=== PATIENT | male | born 1990 | race Caucasian/White ===

== ENCOUNTER 2016-09-28 11:26 | Emergency (ER) | payer OTHER, BC ==
[~2016-09-28] VITALS: Ht 190.5 cm; Wt 67.8 kg
[~2016-09-28 11:26] MED LIST: ETOP20VI IV; GEMC200V IV; HYDR-3144 PO; LORA1TAB PO; ONDA4TAB7 PO
[2016-09-28] MEDS ORDERED: ACYC-114 PO (11:55)
[2016-09-28] MEDS ORDERED: ESCI10TA10 PO (11:55)
[2016-09-28] MEDS ORDERED: COCAINE TOPICAL SOLN 4%, 4ML ONE (12:15)
[2016-09-28] MEDS ORDERED: OXYMETAZOLINE NASAL SPRAY 0.05%, 15ML ONE (12:16)
[2016-09-28] MEDS ORDERED: OXYMETAZOLINE NASAL SPRAY 0.05%, 15ML NAS ONE (12:30)
[2016-09-28] MEDS ORDERED: COCAINE TOPICAL SOLN 4%, 4ML TP ONE (12:30)
[2016-09-28 12:58] LABS: DIFF TOTAL CELLS COUNTED 100 CELL DIFF
[2016-09-28 13:00] LABS: VERIFY COUNTS? YES
[2016-09-28 13:01] LABS: ANISOCYTOSIS 1+
[2016-09-28] MEDS ORDERED: LIDOCAINE GEL 2%, 5ML ONE (14:23)
[2016-09-28] MEDS ORDERED: LIDOCAINE GEL 2%, 5ML TP ONE (14:30)
[2016-09-28 15:16] VITALS: BP 101/54
[2016-09-28 15:32] VITALS: BP 105/45
[2016-09-28 15:50] VITALS: BP 103/54
[2016-09-28 15:52] VITALS: BP 103/54
[2016-09-28 16:08] VITALS: BP 107/59
== END 2016-09-28 16:47 | disposition home or self-care (01) ==
LOC: ED 12:13
DX: R04.0 Epistaxis (principal); D68.32 Hemorrhagic disorder due to extrinsic circulating anticoagulants; D69.59 Other secondary thrombocytopenia
CPT/HCPCS: 30905; 36415; 36430; 85025; 99285; P9037

== ENCOUNTER 2016-09-28 18:16 | Emergency (ER) | payer OTHER, BC ==
[~2016-09-28] VITALS: Ht 190.5 cm; Wt 67.6 kg
[~2016-09-28 18:16] MED LIST changes: +ACYC-114 PO; +ESCI10TA10 PO
[2016-09-28 18:21] VITALS: BP 110/65
== END 2016-09-28 19:01 | disposition home or self-care (01) ==
LOC: ED 18:55
DX: Z02.9 Encounter for administrative examinations, unspecified (principal)
CPT/HCPCS: 99281

== ENCOUNTER → 2017-01-13 | Outpatient (CLI) | payer BC, OTHER ==
[~2017-01-13] MED LIST changes: -HYDR-3144 PO; +HYDR-3245 PO; +OMNIPAQUE 350 MG/ML, 100ML BOTTLE ONE
[2017-01-13 15:48] LABS: HEMATOCRIT 31.2 % (39.2-51.8); HEMOGLOBIN 10.3 g/dL (13.7-18.0)
[2017-01-13 15:49] LABS: ASPARTATE AMINO TRANSFERASE 33 U/L (15-37); BLOOD UREA NITROGEN 20 mg/dL (7-18); LACTATE DEHYDROGENASE 259 U/L (87-241)
[2017-01-13 15:53] LABS: ANISOCYTOSIS 1+
[2017-01-13 15:54] LABS: LARGE PLATELETS 1+
== END | disposition home or self-care (01) ==
LOC: RAD 13:14
PROVIDERS: ATTEND Internal Medicine Hematology & Oncology
DX: C78.02 Secondary malignant neoplasm of left lung (principal); C78.01 Secondary malignant neoplasm of right lung; C62.12 Malignant neoplasm of descended left testis; R59.0 Localized enlarged lymph nodes; R16.1 Splenomegaly, not elsewhere classified; R16.0 Hepatomegaly, not elsewhere classified
CPT/HCPCS: 36415; 71260; 74177; 80053; 82105; 83615; 84702; 85025; Q9967

== ENCOUNTER → 2017-02-04 | Outpatient (CLI) | payer BC, OTHER ==
[~2017-02-04] MED LIST changes: -OMNIPAQUE 350 MG/ML, 100ML BOTTLE ONE
== END | disposition home or self-care (01) ==
LOC: LAB 16:47
PROVIDERS: ATTEND Internal Medicine Hematology & Oncology
DX: Z51.11 Encounter for antineoplastic chemotherapy (principal); C62.12 Malignant neoplasm of descended left testis; C78.00 Secondary malignant neoplasm of unspecified lung; F43.22 Adjustment disorder with anxiety; R19.7 Diarrhea, unspecified; D69.6 Thrombocytopenia, unspecified; D70.1 Agranulocytosis secondary to cancer chemotherapy
CPT/HCPCS: 36415; 84702

== ENCOUNTER 2017-03-01 13:34 | Emergency (ER) | payer BC, OTHER ==
[2017-03-01] VITALS (7 sets, daily range): BP systolic 97–124; BP diastolic 48–73
[~2017-03-01] VITALS: Ht 190.5 cm; Wt 73.2 kg
[2017-03-01] MEDS ORDERED: SODIUM CHLORIDE FLUSH 10ML SYR IVF ONE (15:00)
[2017-03-01 15:05] LABS: BLOOD UREA NITROGEN 18 mg/dL (7-18)
[2017-03-01 15:10] LABS: HEMATOCRIT 30.5 % (39.2-51.8); HEMOGLOBIN 10.3 g/dL (13.7-18.0); WHITE BLOOD COUNT 5.5 x10^3/uL (3.4-10)
[2017-03-01 15:17] LABS: ASPARTATE AMINO TRANSFERASE 30 U/L (15-37)
[2017-03-01 15:37] LABS: DIFF TOTAL CELLS COUNTED 100 CELL DIFF
[2017-03-01 15:40] LABS: ANISOCYTOSIS 1+
[2017-03-01 15:41] LABS: POLYCHROMASIA 1+
[2017-03-01 15:42] LABS: VERIFY COUNTS? YES
== END 2017-03-01 20:13 | disposition home or self-care (01) ==
LOC: ED 16:22
DX: C62.90 Malignant neoplasm of unspecified testis, unspecified whether descended or undescended (principal); R04.2 Hemoptysis; D69.6 Thrombocytopenia, unspecified
CPT/HCPCS: 36415; 36430; 71020; 80053; 85025; 85610; 85730; 86850; 86900; 99285; P9035

== ENCOUNTER 2017-06-07 11:07 | Emergency (ER) | payer OTHER, BC ==
[2017-06-07] VITALS (9 sets, daily range): BP systolic 56–110; BP diastolic 39–60
[~2017-06-07] VITALS: Ht 190.5 cm; Wt 68.7 kg
[2017-06-07] MEDS ORDERED: SODIUM CHLORIDE 0.9% 1,000ML IVBOLUS ONE (12:00)
[2017-06-07] MEDS ORDERED: ONDANSETRON 2MG/ML, 2ML IVPush ONE (12:00)
[2017-06-07] MEDS ORDERED: ONDANSETRON 2MG/ML, 2ML ONE (12:19)
[2017-06-07 12:36] LABS: INTERNATIONAL NORMALIZED RATIO 1.07 (0.93-1.1); PROTHROMBIN TIME 11.1 Seconds (9.6-11.5)
[2017-06-07 12:40] LABS: ALANINE AMINOTRANSFERASE 176 U/L (12-78); ALBUMIN 2.8 g/dL (3.4-5.0); ANION GAP 6 mmol/L (5-15); CALCIUM 8.4 mg/dL (8.5-10.1); CHLORIDE 94 mmol/L (98-107); CREATININE 0.91 mg/dL (0.7-1.3)
[2017-06-07 12:44] LABS: ALKALINE PHOSPHATASE 871 U/L (45-117); BILIRUBIN,TOTAL 2.3 mg/dL (0.2-1.0); TOTAL PROTEIN 6.9 g/dL (6.4-8.2)
[2017-06-07 12:50] LABS: RAPID INFLUENZA A Negative (Negative); RAPID INFLUENZA B Negative (Negative)
[2017-06-07 12:52] LABS: MEAN CORPUSCULAR HEMOGLOBIN 31.4 pg (27.5-34.5); MEAN CORPUSCULAR HGB CONC 33.2 g/dL (33.2-36.2); MEAN CORPUSCULAR VOLUME 94.4 fL (81-97); MEAN PLATELET VOLUME 7.6 fL (7.4-10.4); PLATELET COUNT 177 x10^3/uL (130-400); RED BLOOD COUNT 1.96 x10^6/uL (4.38-5.82); RED CELL DISTRIBUTION WIDTH 17.1 % (9.4-14.8)
[2017-06-07 13:09] LABS: BASOPHILS % (AUTO) 0 % (0-1); EOSINOPHILS % (AUTO) 0 % (1-7); LYMPHOCYTES % (AUTO) 4 % (22-44); MD SCAN; MONOCYTES # (AUTO) 0.52 x10^3/uL (0.2-0.8); MONOCYTES % (AUTO) 5 % (2-9); NEUTROPHILS # (AUTO) 9.81 x10^3/uL (1.8-6.8); NEUTROPHILS % (AUTO) 91 % (42-75)
[2017-06-07] MEDS ORDERED: MORPHINE SULFATE 4 MG/ML, 1ML ONE ×2 (14:05→14:54)
[2017-06-07] MEDS ORDERED: morphine SULFATE 10 MG/ML, 1ML IVPush ONE (14:30)
[2017-06-07] MEDS ORDERED: HYDROmorphone 2 MG/ML, 1ML IVPush PRN (15:00)
[2017-06-07] MEDS ORDERED: HYDROmorphone 2 MG/ML, 1ML ONE (15:11)
[2017-06-07] MEDS ORDERED: OMNIPAQUE 350 MG/ML, 100ML BOTTLE ONE (17:09)
[2017-06-07 18:13] LABS: MICROSCOPIC INDICATED
[2017-06-07 18:25] LABS: CULTURE INDICATED? NO
== END 2017-06-07 18:26 | disposition home or self-care (01) ==
LOC: ED 13:42
DX: C62.90 Malignant neoplasm of unspecified testis, unspecified whether descended or undescended (principal); R16.0 Hepatomegaly, not elsewhere classified
CPT/HCPCS: 36415; 71275; 74022; 74177; 80053; 81001; 83605; 83880; 85025; 85610; 85730; 86850; 86900; 86923; 87040; 87400; 93005; 96361; 96374; 96375; 99285; J1170; J2270; J2405; J7030; P9016; Q9967

== ENCOUNTER 2017-06-09 15:12 | Inpatient (IN) | payer OTHER, BC ==
[2017-06-09] VITALS (8 sets, daily range): BP systolic 80–107; BP diastolic 32–64
[~2017-06-09] VITALS: Ht 190.5 cm; Wt 81.3 kg
[~2017-06-09 15:12] MED LIST changes: +ATROPINE SYRINGE 0.1 MG/ML, 10ML ONE; +DEXTROSE 50%, 50ML SYRINGE ONE; +EPINEPHRINE SYRINGE 0.1 MG/ML, 10ML ONE
[2017-06-09] MEDS ORDERED: SODIUM CHLORIDE 0.9% 1,000ML IVBOLUS ONE ×2 (15:30→16:00)
[2017-06-09] MEDS ORDERED: NOREPINEPHRINE 4 MG in SODIUM CHLORIDE 0.9% 246 ML IV PRN ×2 (15:30→17:00)
[2017-06-09 15:44] LABS: MEAN CORPUSCULAR HEMOGLOBIN 30.9 pg (27.5-34.5); MEAN CORPUSCULAR HGB CONC 33.1 g/dL (33.2-36.2); MEAN CORPUSCULAR VOLUME 93.2 fL (81-97); MEAN PLATELET VOLUME 7.8 fL (7.4-10.4); PLATELET COUNT 103 x10^3/uL (130-400); RED BLOOD COUNT 1.03 x10^6/uL (4.38-5.82); RED CELL DISTRIBUTION WIDTH 18.7 % (9.4-14.8)
[2017-06-09 15:48] LABS: ALBUMIN 2.2 g/dL (3.4-5.0); CHLORIDE 91 mmol/L (98-107); INTERNATIONAL NORMALIZED RATIO 1.53 (0.93-1.1); PROTHROMBIN TIME 15.8 Seconds (9.6-11.5)
[2017-06-09 15:49] LABS: MD YES
[2017-06-09 15:52] LABS: ALKALINE PHOSPHATASE 616 U/L (45-117); BILIRUBIN,TOTAL 2.8 mg/dL (0.2-1.0); TOTAL PROTEIN 5.3 g/dL (6.4-8.2); TROPONIN I 0.028 ng/mL (0.000-0.045)
[2017-06-09] MEDS ORDERED: PROPOFOL 100 ML IV ONE (15:55)
[2017-06-09 15:59] LABS: ANION GAP 24 mmol/L (5-15); CALCIUM 7.6 mg/dL (8.5-10.1); CREATININE 2.09 mg/dL (0.7-1.3)
[2017-06-09] MEDS ORDERED: PLEASE ENTER HEIGHT AND WEIGHT MC SCH (16:00)
[2017-06-09 16:13] LABS: ALANINE AMINOTRANSFERASE 1340 U/L (12-78)
[2017-06-09] MEDS ORDERED: CALCIUM GLUCONATE 4.6 MEQ in SODIUM CHLORIDE 0.9% 50 ML IV STA (16:28)
[2017-06-09] MEDS ORDERED: SODIUM BICARBONATE 1 MEQ/ML, 50ML VIAL IVPush STA (16:28)
[2017-06-09] MEDS ORDERED: PROPOFOL 100 ML IV PRN (16:30)
[2017-06-09 16:42] LABS: BAND#(MANUAL) 0.85 x10^3/uL; BANDS%(MANUAL) 7 % (0-7); LYMPH#(MANUAL) 0.97 x10^3/uL (1-3.4); LYMPHS% (MANUAL) 8 % (22-44); MONOS#(MANUAL) 0.61 x10^3/uL (0.3-2.7); MONOS% (MANUAL) 5 % (2-9); NRBC % (MANUAL) 1 % (0-1); SEG#(MANUAL) 9.68 x10^3/uL (1.8-6.8); SEGS% (MANUAL) 80 % (42-75)
[2017-06-09 16:46] LABS: POLYCHROMASIA 1+
[2017-06-09 16:49] LABS: <PLATELET ESTIMATE> DECREASED; <PLT MORPHOLOGY> NORMAL PLT MORPH
[2017-06-09] MEDS ORDERED: BISACODYL 10 MG SUPP PR PRN (17:00)
[2017-06-09] MEDS ORDERED: CALCIUM CHLORIDE 13.6 MEQ in SODIUM CHLORIDE 0.9% 100 ML IV ONE (17:00)
[2017-06-09] MEDS ORDERED: SENNOSIDES 8.8 MG/5 ML ORAL SOL NG PRN (17:00)
[2017-06-09] MEDS ORDERED: SENNA/DOCUSATE TABLET NG PRN (17:00)
[2017-06-09] MEDS ORDERED: LIDOCAINE-MPF 1%, 2ML ENDO PRN (17:00)
[2017-06-09] MEDS ORDERED: SODIUM BICARB 8.4%, 50ML SYRINGE IVPush ONE (17:00)
[2017-06-09] MEDS ORDERED: PHARMACY MAY ADJ FOR RENAL FX MC SCH (17:00)
[2017-06-09] MEDS ORDERED: VASOPRESSIN 100 UNIT in SODIUM CHLORIDE 0.9% 495 ML IV PRN (17:00)
[2017-06-09] MEDS ORDERED: LACTULOSE 20 GM/30 ML UDC NG PRN (17:00)
[2017-06-09] MEDS ORDERED: PIPERACILLIN/TAZO/PMX 3.375GM 50 ML ONE (17:30)
[2017-06-09] MEDS: PIPERACILLIN/TAZO/PMX 3.375GM 50 ML IV SCH ×2 (17:54→23:06)
[2017-06-09] MEDS: SODIUM BICARBONATE 8.4% 150 MEQ in DEXTROSE 5% 1,000 ML IV SCH (17:56)
[2017-06-09] MEDS ORDERED: DEXTROSE 50%, 50ML VIAL IVPush ONE (18:00)
[2017-06-09] MEDS: SODIUM CHLORIDE 0.9% 1,000 ML IV SCH (18:32)
[2017-06-09] MEDS ORDERED: GLUCAGON 1 MG IM PRN (19:00)
[2017-06-09] MEDS ORDERED: DEXTROSE 4 GM TAB.CHEW PO PRN (19:00)
[2017-06-09] MEDS ORDERED: DEXTROSE 50%, 50ML SYRINGE IVPush PRN (19:00)
[2017-06-09 19:05] LABS: MEAN CORPUSCULAR HGB CONC 34.2 g/dL (33.2-36.2); MEAN CORPUSCULAR VOLUME 90.8 fL (81-97); RED BLOOD COUNT 1.85 x10^6/uL (4.38-5.82); RED CELL DISTRIBUTION WIDTH 16.4 % (9.4-14.8)
[2017-06-09 19:09] LABS: ALBUMIN 1.7 g/dL (3.4-5.0); ANION GAP 19 mmol/L (5-15); CALCIUM 6.9 mg/dL (8.5-10.1); CHLORIDE 96 mmol/L (98-107)
[2017-06-09 19:13] LABS: ALKALINE PHOSPHATASE 472 U/L (45-117); BILIRUBIN,TOTAL 2.5 mg/dL (0.2-1.0); CREATININE 1.77 mg/dL (0.7-1.3); TOTAL PROTEIN 4.2 g/dL (6.4-8.2); TROPONIN I 0.052 ng/mL (0.000-0.045)
[2017-06-09 19:21] LABS: PLATELET COUNT 40 x10^3/uL (130-400)
[2017-06-09 19:22] LABS: MD YES; MEAN PLATELET VOLUME 6.9 fL (7.4-10.4)
[2017-06-09 19:24] LABS: ALANINE AMINOTRANSFERASE 2301 U/L (12-78)
[2017-06-09 19:53] LABS: BAND#(MANUAL) 0.46 x10^3/uL; BANDS%(MANUAL) 5 % (0-7); LYMPH#(MANUAL) 0.27 x10^3/uL (1-3.4); LYMPHS% (MANUAL) 3 % (22-44); METAMYELOCYTES# (MANUAL) 0.09 x10^3/uL (0-0); METAMYELOCYTES% (MANUAL) 1 % (0-1); MONOS#(MANUAL) 0.09 x10^3/uL (0.3-2.7); MONOS% (MANUAL) 1 % (2-9); MYELOCYTES# (MANUAL) 0.09 x10^3/uL (0-0); MYELOCYTES% (MANUAL) 1 % (0-0); NRBC % (MANUAL) 4 % (0-1); REACTIVE LYMPHS # (MANUAL) 0.09 x10^3/uL (0-0); REACTIVE LYMPHS % (MANUAL) 1 % (0-0); SEG#(MANUAL) 8.01 x10^3/uL (1.8-6.8); SEGS% (MANUAL) 88 % (42-75)
[2017-06-09 19:56] LABS: <PLATELET ESTIMATE> DECREASED; <PLT MORPHOLOGY> NORMAL PLT MORPH; ANISOCYTOSIS 1+; POLYCHROMASIA 1+
[2017-06-09] MEDS: SODIUM CHLORIDE FLUSH 10ML SYR IVF SCH (21:17)
[2017-06-09] MEDS: PANTOPRAZOLE 40 MG IV IVPush SCH (21:17)
[2017-06-09] MEDS ORDERED: PHYTONADIONE 10 MG in SODIUM CHLORIDE 0.9% 50 ML IV ONE (21:30)
[2017-06-10] VITALS (9 sets, daily range): BP systolic 90–99; BP diastolic 53–59
[2017-06-10] MEDS: PROPOFOL 100 ML IV PRN ×4 (00:04→19:44)
[2017-06-10] MEDS: SODIUM CHLORIDE 0.9% 1,000 ML IV SCH ×2 (02:55→10:30)
[2017-06-10] MEDS: SODIUM BICARBONATE 8.4% 150 MEQ in DEXTROSE 5% 1,000 ML IV SCH ×3 (02:56→21:29)
[2017-06-10 04:37] LABS: INTERNATIONAL NORMALIZED RATIO 1.46 (0.93-1.1); PROTHROMBIN TIME 15.1 Seconds (9.6-11.5)
[2017-06-10 04:42] LABS: ALBUMIN 2.1 g/dL (3.4-5.0); ANION GAP 13 mmol/L (5-15); CALCIUM 6.4 mg/dL (8.5-10.1); CHLORIDE 97 mmol/L (98-107)
[2017-06-10 04:43] LABS: MEAN CORPUSCULAR HEMOGLOBIN 31.3 pg (27.5-34.5); MEAN CORPUSCULAR HGB CONC 34.6 g/dL (33.2-36.2); MEAN CORPUSCULAR VOLUME 90.4 fL (81-97); RED BLOOD COUNT 2.91 x10^6/uL (4.38-5.82); RED CELL DISTRIBUTION WIDTH 14.7 % (9.4-14.8)
[2017-06-10 05:02] LABS: ALANINE AMINOTRANSFERASE 3225 U/L (12-78); ALKALINE PHOSPHATASE 503 U/L (45-117); BILIRUBIN,TOTAL 4.3 mg/dL (0.2-1.0); CREATININE 1.91 mg/dL (0.7-1.3); TOTAL PROTEIN 4.8 g/dL (6.4-8.2)
[2017-06-10 05:41] LABS: BASOPHILS # (AUTO) 0.02 x10^3/uL (0-0.1); BASOPHILS % (AUTO) 0 % (0-1); EOSINOPHILS % (AUTO) 0 % (1-7); LYMPHOCYTES # (AUTO) 0.76 x10^3/uL (1-3.4); LYMPHOCYTES % (AUTO) 6 % (22-44); MD SCAN; MEAN PLATELET VOLUME 7.5 fL (7.4-10.4); MONOCYTES # (AUTO) 0.15 x10^3/uL (0.2-0.8); MONOCYTES % (AUTO) 1 % (2-9); NEUTROPHILS # (AUTO) 11.61 x10^3/uL (1.8-6.8); NEUTROPHILS % (AUTO) 93 % (42-75); PLATELET COUNT 76 x10^3/uL (130-400)
[2017-06-10] MEDS: PIPERACILLIN/TAZO/PMX 3.375GM 50 ML IV SCH ×4 (05:49→22:59)
[2017-06-10] MEDS ORDERED: FENTANYL PF 100 MCG/2ML ONE (09:09)
[2017-06-10] MEDS: PANTOPRAZOLE 40 MG IV IVPush SCH ×2 (09:11→20:03)
[2017-06-10] MEDS: FENTANYL PF 100 MCG/2ML IVPush PRN ×7 (09:11→23:29)
[2017-06-10] MEDS: SODIUM CHLORIDE FLUSH 10ML SYR IVF SCH ×2 (09:12→20:02)
[2017-06-10 15:56] LABS: ALBUMIN 2.2 g/dL (3.4-5.0); ANION GAP 11 mmol/L (5-15); CALCIUM 6.5 mg/dL (8.5-10.1); CHLORIDE 95 mmol/L (98-107)
[2017-06-10 16:13] LABS: ALANINE AMINOTRANSFERASE 3409 U/L (12-78); ALKALINE PHOSPHATASE 629 U/L (45-117); CREATININE 2.22 mg/dL (0.7-1.3)
[2017-06-11] MEDS: PROPOFOL 100 ML IV PRN ×2 (00:46→04:26)
[2017-06-11] MEDS: FENTANYL PF 100 MCG/2ML IVPush PRN ×4 (03:24→22:48)
[2017-06-11] MEDS: PIPERACILLIN/TAZO/PMX 3.375GM 50 ML IV SCH (04:24)
[2017-06-11 04:42] LABS: MEAN CORPUSCULAR HEMOGLOBIN 31.3 pg (27.5-34.5); MEAN CORPUSCULAR HGB CONC 34.3 g/dL (33.2-36.2); MEAN CORPUSCULAR VOLUME 91.2 fL (81-97); MEAN PLATELET VOLUME 8.2 fL (7.4-10.4); RED BLOOD COUNT 2.84 x10^6/uL (4.38-5.82)
[2017-06-11 04:53] LABS: PLATELET COUNT 48 x10^3/uL (130-400)
[2017-06-11 04:57] LABS: ALBUMIN 2.2 g/dL (3.4-5.0); ANION GAP 11 mmol/L (5-15); CALCIUM 6.7 mg/dL (8.5-10.1); CHLORIDE 95 mmol/L (98-107)
[2017-06-11 05:07] LABS: MD YES
[2017-06-11 05:09] LABS: ANISOCYTOSIS 1+; BAND#(MANUAL) 0.69 x10^3/uL; BANDS%(MANUAL) 6 % (0-7); LYMPH#(MANUAL) 0.23 x10^3/uL (1-3.4); LYMPHS% (MANUAL) 2 % (22-44); MONOS#(MANUAL) 0.23 x10^3/uL (0.3-2.7); MONOS% (MANUAL) 2 % (2-9); POLYCHROMASIA 1+; SEG#(MANUAL) 10.35 x10^3/uL (1.8-6.8); SEGS% (MANUAL) 90 % (42-75)
[2017-06-11 05:10] LABS: ALANINE AMINOTRANSFERASE 2945 U/L (12-78); ALKALINE PHOSPHATASE 654 U/L (45-117); BILIRUBIN,TOTAL 6.4 mg/dL (0.2-1.0); CREATININE 2.15 mg/dL (0.7-1.3); TOTAL PROTEIN 5.1 g/dL (6.4-8.2)
[2017-06-11 05:11] LABS: <PLATELET ESTIMATE> DECREASED; LARGE PLATELETS 1+
[2017-06-11] MEDS: SODIUM BICARBONATE 8.4% 150 MEQ in DEXTROSE 5% 1,000 ML IV SCH (06:21)
[2017-06-11] MEDS: PANTOPRAZOLE 40 MG IV IVPush SCH ×2 (08:46→19:55)
[2017-06-11] MEDS: SODIUM CHLORIDE FLUSH 10ML SYR IVF SCH ×2 (08:47→19:55)
[2017-06-11] MEDS ORDERED: LIDOCAINE 1%, 20ML ONE (11:07)
[2017-06-11] MEDS ORDERED: ALPRazolam 1MG TABLET ONE (14:33)
[2017-06-11] MEDS: ALPRazolam 1MG TABLET PO PRN (14:36)
[2017-06-12] MEDS: FENTANYL PF 100 MCG/2ML IVPush PRN ×8 (01:26→23:07)
[2017-06-12] MEDS: ALPRazolam 1MG TABLET PO PRN ×3 (01:29→21:03)
[2017-06-12 05:02] LABS: ALBUMIN 2.1 g/dL (3.4-5.0); ANION GAP 11 mmol/L (5-15); CALCIUM 7.2 mg/dL (8.5-10.1); CHLORIDE 93 mmol/L (98-107); MEAN CORPUSCULAR HEMOGLOBIN 31.6 pg (27.5-34.5); MEAN CORPUSCULAR HGB CONC 33.9 g/dL (33.2-36.2); MEAN CORPUSCULAR VOLUME 93.3 fL (81-97); MEAN PLATELET VOLUME 8.6 fL (7.4-10.4); RED CELL DISTRIBUTION WIDTH 15.4 % (9.4-14.8)
[2017-06-12 05:25] LABS: ALANINE AMINOTRANSFERASE 1840 U/L (12-78); ALKALINE PHOSPHATASE 892 U/L (45-117); BILIRUBIN,TOTAL 5.6 mg/dL (0.2-1.0); CREATININE 1.55 mg/dL (0.7-1.3); PLATELET COUNT 41 x10^3/uL (130-400); TOTAL PROTEIN 5.1 g/dL (6.4-8.2)
[2017-06-12 05:35] LABS: TRIGLYCERIDES 63 mg/dL (50-200)
[2017-06-12 05:59] LABS: MD YES
[2017-06-12 06:00] LABS: BAND#(MANUAL) 0.23 x10^3/uL; BANDS%(MANUAL) 2 % (0-7); LYMPH#(MANUAL) 0.57 x10^3/uL (1-3.4); LYMPHS% (MANUAL) 5 % (22-44); MONOS#(MANUAL) 0.34 x10^3/uL (0.3-2.7); MONOS% (MANUAL) 3 % (2-9); SEG#(MANUAL) 10.26 x10^3/uL (1.8-6.8); SEGS% (MANUAL) 90 % (42-75)
[2017-06-12 06:01] LABS: ANISOCYTOSIS 1+; POLYCHROMASIA 1+
[2017-06-12 06:02] LABS: <PLATELET ESTIMATE> DECREASED
[2017-06-12 06:03] LABS: LARGE PLATELETS 1+
[2017-06-12] MEDS: SODIUM CHLORIDE FLUSH 10ML SYR IVF SCH ×2 (09:04→21:03)
[2017-06-12] MEDS: PANTOPRAZOLE 40 MG IV IVPush SCH ×2 (09:04→21:03)
[2017-06-12 10:15] VITALS: BP 111/70
[2017-06-12 12:39] VITALS: BP 108/67
[2017-06-12 20:04] VITALS: BP 115/69
[2017-06-13] VITALS (9 sets, daily range): BP systolic 94–110; BP diastolic 50–69
[2017-06-13] MEDS: FENTANYL PF 100 MCG/2ML IVPush PRN ×12 (01:54→23:29)
[2017-06-13 06:20] LABS: MEAN CORPUSCULAR HEMOGLOBIN 31.8 pg (27.5-34.5); MEAN CORPUSCULAR HGB CONC 33.9 g/dL (33.2-36.2); MEAN CORPUSCULAR VOLUME 93.9 fL (81-97); MEAN PLATELET VOLUME 7.8 fL (7.4-10.4); RED BLOOD COUNT 1.97 x10^6/uL (4.38-5.82); RED CELL DISTRIBUTION WIDTH 15.3 % (9.4-14.8)
[2017-06-13 06:21] LABS: PLATELET COUNT 45 x10^3/uL (130-400)
[2017-06-13 06:31] LABS: BASOPHILS # (AUTO) 0.02 x10^3/uL (0-0.1); BASOPHILS % (AUTO) 0 % (0-1); EOSINOPHILS % (AUTO) 0 % (1-7); LYMPHOCYTES # (AUTO) 0.48 x10^3/uL (1-3.4); LYMPHOCYTES % (AUTO) 4 % (22-44); MD SCAN; MONOCYTES # (AUTO) 0.54 x10^3/uL (0.2-0.8); MONOCYTES % (AUTO) 4 % (2-9); NEUTROPHILS # (AUTO) 11.54 x10^3/uL (1.8-6.8); NEUTROPHILS % (AUTO) 92 % (42-75)
[2017-06-13] MEDS ORDERED: CATHFLO-ALTEPLASE 2 MG/2 ML CATHFLUSH ONE (07:30)
[2017-06-13] MEDS: PANTOPRAZOLE 40 MG IV IVPush SCH (08:43)
[2017-06-13] MEDS: SODIUM CHLORIDE FLUSH 10ML SYR IVF SCH ×2 (08:57→21:20)
[2017-06-13] MEDS: ALPRazolam 1MG TABLET PO PRN ×2 (09:19→16:51)
[2017-06-13] MEDS ORDERED: FLUOXETINE HCL 20 MG/5 ML ORAL.SOL PO ONE (13:00)
[2017-06-13] MEDS ORDERED: CITALOPRAM 20 MG TABLET PO SCH (13:00)
[2017-06-13] MEDS ORDERED: PHENYLEPHRINE NASAL 1%, 15ML SPRAY NAS PRN (14:00)
[2017-06-13] MEDS: PANTOPROZOLE 40MG TABLET PO SCH (21:20)
[2017-06-14] MEDS: ALPRazolam 1MG TABLET PO PRN ×3 (00:39→17:25)
[2017-06-14] MEDS: FENTANYL PF 100 MCG/2ML IVPush PRN ×13 (00:39→22:22)
[2017-06-14 01:48] VITALS: BP 107/60
[2017-06-14 05:55] LABS: MEAN CORPUSCULAR HEMOGLOBIN 31.7 pg (27.5-34.5); MEAN CORPUSCULAR HGB CONC 33.7 g/dL (33.2-36.2); RED BLOOD COUNT 3.03 x10^6/uL (4.38-5.82)
[2017-06-14 05:56] LABS: CHLORIDE 92 mmol/L (98-107)
[2017-06-14 06:03] LABS: ALANINE AMINOTRANSFERASE 750 U/L (12-78); ALBUMIN 1.9 g/dL (3.4-5.0); ALKALINE PHOSPHATASE 753 U/L (45-117); ANION GAP 8 mmol/L (5-15); BILIRUBIN,TOTAL 4.3 mg/dL (0.2-1.0); CALCIUM 7.2 mg/dL (8.5-10.1); CREATININE 0.92 mg/dL (0.7-1.3); TOTAL PROTEIN 4.8 g/dL (6.4-8.2)
[2017-06-14 06:20] LABS: MD YES
[2017-06-14 06:21] LABS: MEAN PLATELET VOLUME 8.4 fL (7.4-10.4)
[2017-06-14 06:29] LABS: ANISOCYTOSIS 1+; LYMPH#(MANUAL) 1.44 x10^3/uL (1-3.4); LYMPHS% (MANUAL) 8 % (22-44); MONOS#(MANUAL) 0.72 x10^3/uL (0.3-2.7); MONOS% (MANUAL) 4 % (2-9); POLYCHROMASIA 1+; SEG#(MANUAL) 15.84 x10^3/uL (1.8-6.8); SEGS% (MANUAL) 88 % (42-75)
[2017-06-14 06:30] LABS: <PLATELET ESTIMATE> DECREASED; <PLT MORPHOLOGY> NORMAL PLT MORPH
[2017-06-14 06:41] LABS: PLATELET COUNT 41 x10^3/uL (130-400)
[2017-06-14] MEDS: PANTOPROZOLE 40MG TABLET PO SCH ×2 (08:02→19:26)
[2017-06-14] MEDS: SODIUM CHLORIDE FLUSH 10ML SYR IVF SCH ×2 (08:02→19:27)
[2017-06-14] MEDS ORDERED: FLUOXETINE 10 MG PO SCH (09:00)
[2017-06-14] MEDS ORDERED: FLUOXETINE HCL 20 MG/5 ML ORAL.SOL PO SCH (09:00)
[2017-06-14 09:37] VITALS: BP 88/45
[2017-06-14] MEDS ORDERED: ALBUTEROL SULFATE 2.5 MG/3 ML ONE (10:51)
[2017-06-14] MEDS ORDERED: ALBUTEROL SULFATE 2.5 MG/3 ML NPPB PRN (11:00)
[2017-06-14] MEDS: OXYcodone IR 5MG TABLET PO PRN ×4 (11:26→23:23)
[2017-06-14] MEDS: ALBUTEROL SULFATE 2.5 MG/3 ML NPPB SCH ×3 (14:25→22:00)
[2017-06-14 14:30] VITALS: BP 95/64
[2017-06-14] MEDS ORDERED: FENTANYL REMOVE PATCH NOTE XX SCH (17:59)
[2017-06-14] MEDS ORDERED: FENTANYL 25 MCG PATCH TD SCH (18:00)
[2017-06-14 19:54] VITALS: BP 96/58
[2017-06-15] MEDS: LORazepam 0.5MG TABLET PO PRN ×4 (00:38→20:26)
[2017-06-15] MEDS: FENTANYL PF 100 MCG/2ML IVPush PRN ×10 (00:38→23:41)
[2017-06-15 00:43] VITALS: BP 102/53
[2017-06-15] MEDS: OXYcodone IR 5MG TABLET PO PRN ×3 (05:16→22:54)
[2017-06-15] MEDS: ALBUTEROL SULFATE 2.5 MG/3 ML NPPB SCH ×5 (07:00→22:30)
[2017-06-15 07:21] VITALS: BP 112/47
[2017-06-15] MEDS: FLUOXETINE 10 MG HOMEMEDPO SCH (09:00)
[2017-06-15] MEDS: SODIUM CHLORIDE FLUSH 10ML SYR IVF SCH ×2 (10:09→20:26)
[2017-06-15] MEDS: PANTOPROZOLE 40MG TABLET PO SCH ×2 (10:09→20:25)
[2017-06-15 13:29] VITALS: BP 96/55
[2017-06-15 19:01] VITALS: BP 105/67
[2017-06-16] MEDS: FENTANYL PF 100 MCG/2ML IVPush PRN ×8 (01:01→15:42)
[2017-06-16 01:07] VITALS: BP 84/46
[2017-06-16 02:27] VITALS: BP 104/64
[2017-06-16] MEDS: LORazepam 0.5MG TABLET PO PRN ×2 (05:42→11:22)
[2017-06-16] MEDS: ALBUTEROL SULFATE 2.5 MG/3 ML NPPB SCH ×3 (06:00→14:00)
[2017-06-16 07:08] VITALS: BP 96/61
[2017-06-16] MEDS: OXYcodone IR 5MG TABLET PO PRN ×2 (08:38→15:07)
[2017-06-16] MEDS: FLUOXETINE 10 MG HOMEMEDPO SCH (09:00)
[2017-06-16] MEDS ORDERED: FENTANYL 100 MCG PATCH TD ONE (11:00)
[2017-06-16] MEDS: SODIUM CHLORIDE FLUSH 10ML SYR IVF SCH (11:15)
[2017-06-16] MEDS: PANTOPROZOLE 40MG TABLET PO SCH (11:22)
[2017-06-16] MEDS ORDERED: LORA-445 PO (12:48)
[2017-06-16 12:50] VITALS: BP 93/55
== END 2017-06-16 16:08 | disposition home or self-care (01) | DRG 208 ==
LOC: ED 16:11 → EDIP 16:33 → CCU 17:46 → 3NW 06-12 10:07
PROVIDERS: ADMIT Hospitalist; ATTEND Hospitalist
PROC: 02HV33Z Insertion of Infusion Device into Superior Vena Cava, Percutaneous Approach (ICD-10-PCS; principal; 2017-06-09)
PROC: 5A1945Z Respiratory Ventilation, 24-96 Consecutive Hours (ICD-10-PCS; 2017-06-09)
PROC: 5A12012 Performance of Cardiac Output, Single, Manual (ICD-10-PCS; 2017-06-09)
PROC: 0BH17EZ Insertion of Endotracheal Airway into Trachea, Via Natural or Artificial Opening (ICD-10-PCS; 2017-06-09)
PROC: 30233R1 Transfusion of Nonautologous Platelets into Peripheral Vein, Percutaneous Approach (ICD-10-PCS; 2017-06-09)
PROC: 30233N1 Transfusion of Nonautologous Red Blood Cells into Peripheral Vein, Percutaneous Approach (ICD-10-PCS; 2017-06-09)
PROC: 0W9G3ZZ Drainage of Peritoneal Cavity, Percutaneous Approach (ICD-10-PCS; 2017-06-11)
DX: J96.01 Acute respiratory failure with hypoxia (principal); I46.9 Cardiac arrest, cause unspecified; K72.00 Acute and subacute hepatic failure without coma; I82.220 Acute embolism and thrombosis of inferior vena cava; E43 Unspecified severe protein-calorie malnutrition; N17.0 Acute kidney failure with tubular necrosis; G93.40 Encephalopathy, unspecified; R18.8 Other ascites; D69.6 Thrombocytopenia, unspecified; R57.1 Hypovolemic shock; I31.3 Pericardial effusion (noninflammatory); B17.9 Acute viral hepatitis, unspecified; I82.401 Acute embolism and thrombosis of unspecified deep veins of right lower extremity; E87.1 Hypo-osmolality and hyponatremia; E87.2 Acidosis; Z99.11 Dependence on respirator [ventilator] status; R04.0 Epistaxis; Z00.6 Encounter for examination for normal comparison and control in clinical research program; Z66 Do not resuscitate; G31.9 Degenerative disease of nervous system, unspecified; F41.9 Anxiety disorder, unspecified; E87.5 Hyperkalemia; E86.1 Hypovolemia; Z68.22 Body mass index [BMI] 22.0-22.9, adult; D64.9 Anemia, unspecified; E16.2 Hypoglycemia, unspecified; I34.0 Nonrheumatic mitral (valve) insufficiency; Z85.47 Personal history of malignant neoplasm of testis; Z90.49 Acquired absence of other specified parts of digestive tract; Z90.79 Acquired absence of other genital organ(s); Z92.21 Personal history of antineoplastic chemotherapy
CPT/HCPCS: 36415; 36430; 36569; 36600; 49083; 70450; 71045; 74176; 80053; 82105; 82533; 82550; 82803; 82947; 82962; 83605; 83615; 83735; 83880; 84100; 84478; 84484; 84702; 85014; 85018; 85025; 85384; 85610; 85730; 86850; 86900; 86923; 87040; 87070; 87081; 87205; 92950; 93005; 93306; 93970; 94002; 94003; 94640; 96365; 96366; 96368; 96375; 99292; J0461; J2543; J2704; J2997; J3010; J3430; J3490; J7070; J7613; C9113; J7030; J7050; P9016; P9035